=== PATIENT | female | born 1935 | race Caucasian/White ===

== ENCOUNTER 2021-10-10 12:47 | Emergency (ER) | payer MEDICARE ==
[~2021-10-10 12:47] MED LIST: LEVAQUIN500 MG PO
[2021-10-10 14:54] LABS: BASOPHIL 0.5 % (0-2); EOSINOPHIL 0 % (0-7); HCT 47.9 % (37.0-47.0); LYMPHOCYTE 33.7 % (15-48); MCH 31.6 pg (25.0-31.0); MCHC 33.4 g/dL (32.0-36.0); MCV 94.5 fL (78.0-100.0); MONOCYTE 10.7 % (0-12); MPV 10.9 fL (6.0-9.5); NEUTROPHIL 54.9 % (41-80); NRBC 0; RBC 5.07 M/uL (4.20-5.40); RDW 12.5 % (11.5-14.0); WBC 4.1 K/uL (4.0-10.5)
[2021-10-10 15:19] LABS: PLT 147 K/uL (150-400)
[2021-10-10 16:15] LABS: BUN/CREAT RATIO (CALC) 20.3 RATIO; CREATININE 0.69 mg/dL (0.51-0.95); POTASSIUM 3.4 mmol/L (3.5-5.1)
== END 2021-10-10 17:06 | disposition home or self-care (01) ==
LOC: FER 12:47
PROVIDERS: Nurse Practitioner Family
DX: U07.1 COVID-19 (principal); I10 Essential (primary) hypertension; F03.90 Unspecified dementia, unspecified severity, without behavioral disturbance, psychotic disturbance, mood disturbance, and anxiety; Z86.73 Personal history of transient ischemic attack (TIA), and cerebral infarction without residual deficits; Z88.6 Allergy status to analgesic agent; Z23 Encounter for immunization; Z88.8 Allergy status to other drugs, medicaments and biological substances; Z88.7 Allergy status to serum and vaccine; Z79.02 Long term (current) use of antithrombotics/antiplatelets
CPT/HCPCS: 36415; 80048; 85025; J7120; M0245; Q0245